=== PATIENT | female | born 1950 | race Caucasian/White ===

== ENCOUNTER 2020-12-02 08:39 | Day surgery (SDC) | payer MEDICARE, BC ==
[~2020-12-02 08:39] MED LIST: Albuterol/Ipratropium 3.0-0.5 MG/3 ML Neb Soln NEB ONE; Lactated Ringers 1,000 ML IV SCH; Sodium Chloride 0.9% 10 ML Syringe FLUSH PRN
[2020-12-02] MEDS ORDERED: Propofol 200 MG/20 ML SDV IV ONE (08:40)
[2020-12-02] MEDS ORDERED: fentaNYL 100 MCG/2 ML SDV IV ONE (08:40)
[2020-12-02] MEDS ORDERED: Lidocaine 2% 5 ML SDV INJECT ONE (08:40)
[2020-12-02] MEDS ORDERED: Succinylcholine 200 MG/10 ML MDV IV ONE (08:40)
[2020-12-02] MEDS ORDERED: Midazolam 1 MG/ML 2 ML SDV IV ONE (08:40)
[2020-12-02] MEDS ORDERED: Albuterol/Ipratropium 3.0-0.5 MG/3 ML Neb Soln NEB ONE ×2 (09:00→10:00)
[2020-12-02] MEDS ORDERED: Lactated Ringers 1,000 ML IV SCH (09:00)
[2020-12-02] MEDS ORDERED: acetaZOLAMIDE 500 MG Cap.ER PO ONE ×2 (09:00→11:00)
[2020-12-02] MEDS ORDERED: Sodium Chloride 0.9% 10 ML Syringe FLUSH PRN (09:00)
--- NOTE | 2020-12-02 12:54 | OR ---
DATE OF OPERATION: 12/02/2020 SURGEON: Serina Sotomayor MD PREOPERATIVE DIAGNOSIS: Visually significant cataract, right eye. POSTOPERATIVE DIAGNOSIS: Visually significant cataract, right eye. PROCEDURES PERFORMED: Complex phacoemulsification with intraocular lens placement, right eye; CPT 92253. ASSISTANTS: None. ANESTHESIA: LMA general anesthesia. COMPLICATIONS: None. BLOOD LOSS: None. IMPLANTS: A pre-loaded DCB00 25.0 diopter lens implanted. CDE: 17.55. DESCRIPTION OF PROCEDURE: After risks and benefits were reviewed with the patient, consent was obtained in the preoperative area, and the operative eye was marked with a surgical pen. In the preoperative area, a pledget was used to dilate the pupil consisting of a mixture of phenylephrine 10%, cyclopentolate 2%, moxifloxacin 0.5%, and bupivacaine 0.75%. The patient was taken to the operating room, where a time-out was performed, and the patient was placed under LMA monitored anesthesia care due to the patient's claustrophobia, breathing, and medical issues. Topical tetracaine was used for anesthesia. The operative eye was prepped and draped for ophthalmic surgery, and the microscope was brought into position and focused. A paracentesis incision was made, followed by injection of preservative-free 1% lidocaine into the anterior chamber, followed by injection of Viscoat into the anterior chamber. 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 A microkeratome blade was used to make a corneal limbal incision temporally. A cystotome was used to make the beginning of the capsulorrhexis, which was carried around 360 degrees in a curvilinear fashion using Utrata forceps. A Danielson cannula with BSS was used to hydrodissect and hydrodelineate the nucleus. The nucleus was removed in a divide and conquer manner using phacoemulsification. Irrigation and aspiration were used to remove the remaining cortical material. Provisc was used to inflate the capsular bag, and a pre-loaded DCB00 25.0 diopter lens, serial number [id number] was injected into the capsular bag. A Sinskey hook was used to position and center the lens. The Malyugin ring was then removed from the anterior chamber and discarded. Next, irrigation and aspiration was used to remove any remaining viscoelastic and cortical material from the anterior chamber. BSS on a cannula was used to inflate the anterior chamber and hydrate the wound. The wound was checked and found to be watertight. 1 mg of Moxifloxacin was injected into the anterior chamber. Drapes were removed and the eye was cleaned. A drop of brimonidine 0.2% and a drop of TobraDex was placed. The eye was shielded, and the patient was taken to the recovery room in stable condition. /[id number] VIRIDIANA/GLENYS
== END 2020-12-02 12:30 | disposition home or self-care (01) ==
LOC: FB.SDS 08:39
PROVIDERS: ATTEND Ophthalmology
DX: E11.36 Type 2 diabetes mellitus with diabetic cataract (principal); H25.13 Age-related nuclear cataract, bilateral; H04.123 Dry eye syndrome of bilateral lacrimal glands; H40.013 Open angle with borderline findings, low risk, bilateral; H50.111 Monocular exotropia, right eye; H53.021 Refractive amblyopia, right eye; H52.223 Regular astigmatism, bilateral; Z79.899 Other long term (current) drug therapy; Z79.82 Long term (current) use of aspirin; Z88.0 Allergy status to penicillin; Z88.8 Allergy status to other drugs, medicaments and biological substances; Z87.891 Personal history of nicotine dependence
CPT/HCPCS: 00142; 66982; A9270; J0330; J2250; J2704; J3010; J7120; V2632; J7620-GY

== ENCOUNTER 2020-12-30 10:43 | Day surgery (SDC) | payer MEDICARE, BC ==
[2020-12-30] MEDS ORDERED: fentaNYL 100 MCG/2 ML SDV IV ONE (10:44)
[2020-12-30] MEDS ORDERED: ePHEDrine 50 MG/ML SDV IV ONE (10:44)
[2020-12-30] MEDS ORDERED: Dexamethasone 4 MG/ML 5 ML MDV IVPUSH ONE (10:44)
[2020-12-30] MEDS ORDERED: Rocuronium 100 MG/10 ML MDV IV ONE (10:44)
[2020-12-30] MEDS ORDERED: Midazolam 1 MG/ML 2 ML SDV IV ONE (10:44)
[2020-12-30] MEDS ORDERED: Ondansetron 4 MG/2 ML SDV IVPUSH ONE (10:44)
[2020-12-30] MEDS ORDERED: Propofol 200 MG/20 ML SDV IV ONE (10:44)
[2020-12-30] MEDS ORDERED: Succinylcholine 200 MG/10 ML MDV IV ONE (10:44)
[2020-12-30] MEDS ORDERED: Lidocaine 2% 5 ML SDV INJECT ONE (10:44)
[2020-12-30] MEDS ORDERED: Sugammadex Sodium 200 MG/2 ML VIAL IV ONE (10:44)
[2020-12-30] MEDS ORDERED: Sodium Chloride 0.9% 10 ML Syringe FLUSH PRN (11:00)
[2020-12-30] MEDS ORDERED: Lactated Ringers 1,000 ML IV SCH (11:00)
[2020-12-30] MEDS ORDERED: Albuterol/Ipratropium 3.0-0.5 MG/3 ML Neb Soln NEB ONE ×2 (11:30→13:15)
[2020-12-30] MEDS ORDERED: acetaZOLAMIDE 500 MG Cap.ER PO ONE (13:00)
[2020-12-30] MEDS ORDERED: Albuterol/Ipratropium 3.0-0.5 MG/3 ML Neb Soln ONE (13:19)
--- NOTE | 2020-12-30 14:15 | OR ---
DATE OF OPERATION: 12/30/2020 SURGEON: Serina Sotomayor MD PREOPERATIVE DIAGNOSIS: Visually significant cataract, left eye. POSTOPERATIVE DIAGNOSIS: Visually significant cataract, left eye. PROCEDURES PERFORMED: Phacoemulsification with intraocular lens placement, left eye. ASSISTANTS: None. ANESTHESIA: General intubation. COMPLICATIONS: None. BLOOD LOSS: None. IMPLANTS: Pre-loaded DCB00 24.5 diopter lens implanted. CDE: 9.32. DESCRIPTION OF PROCEDURE: After risks and benefits were reviewed with the patient, consent was obtained in the preoperative area, and the operative eye was marked with a surgical pen. In the preoperative area, a pledget was used to dilate the pupil consisting of a mixture of phenylephrine 10%, cyclopentolate 2%, moxifloxacin 0.5%, and bupivacaine 0.75%. The patient was taken to the operating room, where a time-out was performed, and the patient was placed under general anesthesia due to multiple medical problems and severe claustrophobia. Topical tetracaine was used for anesthesia. The operative eye was prepped and draped for ophthalmic surgery, and the microscope was brought into position and focused. A paracentesis incision was made, followed by injection of preservative-free 1% lidocaine into the anterior chamber, followed by injection of Viscoat into the anterior chamber. A microkeratome blade was used to make a corneal limbal incision temporally. A cystotome was used to make the beginning of the capsulorrhexis, which was carried around 360 degrees in a curvilinear fashion using Utrata forceps. A Danielson cannula with BSS was used to hydrodissect and hydrodelineate the nucleus. The nucleus was removed in a divide and conquer manner using phacoemulsification. Irrigation and aspiration were used to remove the remaining cortical material. Provisc was used to inflate the capsular bag, and a pre-loaded DCB00 24.5 diopter lens, serial number [id number] was injected into the capsular bag. A Sinskey hook was used to position and center the lens. Next, irrigation and aspiration was used to remove any remaining viscoelastic and cortical material from the anterior chamber. BSS on a cannula was used to inflate the anterior chamber and hydrate the wound. The wound was checked and found to be watertight. 1 mg of Moxifloxacin was injected into the anterior chamber. Drapes were removed and the eye was cleaned. A drop of brimonidine 0.2% and a drop of TobraDex was placed. The eye was shielded, and the patient was taken to the recovery room in stable condition and awoken from anesthesia. /[id number] VIRIDIANA/GLENYS
== END 2020-12-30 14:35 | disposition home or self-care (01) ==
LOC: FB.SDS 10:43
PROVIDERS: ATTEND Ophthalmology
DX: E11.36 Type 2 diabetes mellitus with diabetic cataract (principal); H25.13 Age-related nuclear cataract, bilateral; H04.123 Dry eye syndrome of bilateral lacrimal glands; H40.013 Open angle with borderline findings, low risk, bilateral; H50.111 Monocular exotropia, right eye; H53.021 Refractive amblyopia, right eye; J44.9 Chronic obstructive pulmonary disease, unspecified; H52.223 Regular astigmatism, bilateral; I10 Essential (primary) hypertension; I48.91 Unspecified atrial fibrillation; I11.0 Hypertensive heart disease with heart failure; R09.01 Asphyxia; G47.30 Sleep apnea, unspecified; E78.5 Hyperlipidemia, unspecified; Z79.899 Other long term (current) drug therapy; Z88.0 Allergy status to penicillin; Z88.8 Allergy status to other drugs, medicaments and biological substances; Z87.891 Personal history of nicotine dependence
CPT/HCPCS: 00142-QZ; 94640; A9270-GY; J0330; J1100; J2250; J2405; J2704; J3010; J3490; J7120; J7620-GY; V2632

== ENCOUNTER → 2022-03-06 00:35 | Inpatient (IN) | payer MEDICARE, BC ==
[2022-02-24] MEDS: Insulin Lispro 100 Unit/ML 3 ML KwikPen SUBCUT SCH (17:45)
[2022-02-24] MEDS: Polyethylene Glycol 3350 Powder 17 GM Packet PO SCH (20:54)
[2022-02-24] MEDS: Gabapentin 300 MG Cap PO SCH (20:58)
[2022-02-24] MEDS: traZODone 50 MG Tab PO SCH (20:58)
[2022-02-24] MEDS: Oxybutynin 5 MG Tab.ER PO SCH (20:58)
[2022-02-24] MEDS: Apixaban 5 MG Tab PO SCH (20:58)
[2022-02-24] MEDS: Melatonin 3 MG Tab PO SCH (20:58)
[2022-02-24] MEDS: atorvaSTATin 40 MG Tab PO SCH (20:58)
[2022-02-24] MEDS: Aspirin 81 MG Tab.EC PO SCH (20:58)
[2022-02-25] MEDS: Pantoprazole 40 MG Tab.CR PO SCH (06:23)
[2022-02-25] MEDS: Insulin Lispro 100 Unit/ML 3 ML KwikPen SUBCUT SCH ×3 (08:15→17:48)
[2022-02-25] MEDS: Bumetanide 2 MG Tab PO SCH (08:17)
[2022-02-25] MEDS: DULoxetine 60 MG Cap PO SCH (08:18)
[2022-02-25] MEDS: Multivitamins with Iron/Calcium/Folic Acid/Minerals Tab PO SCH (08:19)
[2022-02-25] MEDS: Apixaban 5 MG Tab PO SCH ×2 (08:19→20:12)
[2022-02-25] MEDS: Ascorbic Acid 500 MG Tab PO SCH (08:19)
[2022-02-25] MEDS: Magnesium Oxide 400 MG Tab PO SCH (08:20)
[2022-02-25] MEDS: TRELEGY ELLIPTA INH SCH (08:22)
[2022-02-25] MEDS: Isosorbide Mononitrate 30 MG Tab.ER PO SCH (08:23)
[2022-02-25] MEDS: Potassium Chloride 20 MEQ Tab.ER PO SCH (08:26)
[2022-02-25] MEDS: Polyethylene Glycol 3350 Powder 17 GM Packet PO SCH (08:28)
[2022-02-25] MEDS: Metoprolol Succinate 25 MG Tab.ER PO SCH (08:29)
[2022-02-25] MEDS: Gabapentin 300 MG Cap PO SCH ×2 (08:48→20:12)
[2022-02-25] MEDS: Insulin Glargine,Human Rec. Analog 100 Units/ML 3 ML Pen SUBCUT SCH (08:50)
[2022-02-25] MEDS: Calcium Carbonate 500 MG Tablet PO SCH ×2 (08:52→20:12)
[2022-02-25] MEDS: Oxybutynin 5 MG Tab.ER PO SCH (20:12)
[2022-02-25] MEDS: Melatonin 3 MG Tab PO SCH (20:12)
[2022-02-25] MEDS: traZODone 50 MG Tab PO SCH (20:12)
[2022-02-25] MEDS: atorvaSTATin 40 MG Tab PO SCH (20:13)
[2022-02-25] MEDS: Aspirin 81 MG Tab.EC PO SCH (20:13)
[2022-02-25] MEDS: Acetaminophen 325 MG Tab PO PRN (22:30)
[2022-02-26] MEDS: Pantoprazole 40 MG Tab.CR PO SCH (06:22)
[2022-02-26] MEDS: Potassium Chloride 20 MEQ Tab.ER PO SCH (08:21)
[2022-02-26] MEDS: Magnesium Oxide 400 MG Tab PO SCH (08:22)
[2022-02-26] MEDS: Bumetanide 2 MG Tab PO SCH (08:22)
[2022-02-26] MEDS: Gabapentin 300 MG Cap PO SCH ×2 (08:22→20:57)
[2022-02-26] MEDS: Apixaban 5 MG Tab PO SCH ×2 (08:22→20:57)
[2022-02-26] MEDS: DULoxetine 60 MG Cap PO SCH (08:22)
[2022-02-26] MEDS: Ascorbic Acid 500 MG Tab PO SCH (08:26)
[2022-02-26] MEDS: Multivitamins with Iron/Calcium/Folic Acid/Minerals Tab PO SCH (08:26)
[2022-02-26] MEDS: Isosorbide Mononitrate 30 MG Tab.ER PO SCH (08:27)
[2022-02-26] MEDS: Metoprolol Succinate 25 MG Tab.ER PO SCH (08:27)
[2022-02-26] MEDS: TRELEGY ELLIPTA INH SCH (08:28)
[2022-02-26] MEDS: Calcium Carbonate 500 MG Tablet PO SCH ×2 (08:28→20:57)
[2022-02-26] MEDS: Acetaminophen 325 MG Tab PO PRN ×4 (08:34→22:00)
[2022-02-26] MEDS: Insulin Lispro 100 Unit/ML 3 ML KwikPen SUBCUT SCH ×3 (08:36→18:06)
[2022-02-26] MEDS: Insulin Glargine,Human Rec. Analog 100 Units/ML 3 ML Pen SUBCUT SCH (08:37)
[2022-02-26] MEDS: oxyCODONE 5 MG Tab PO PRN (10:30)
[2022-02-26] MEDS: atorvaSTATin 40 MG Tab PO SCH (20:56)
[2022-02-26] MEDS: Melatonin 3 MG Tab PO SCH (20:57)
[2022-02-26] MEDS: traZODone 50 MG Tab PO SCH (20:57)
[2022-02-26] MEDS: Oxybutynin 5 MG Tab.ER PO SCH (20:57)
[2022-02-26] MEDS: Aspirin 81 MG Tab.EC PO SCH (20:57)
[2022-02-27] MEDS: Acetaminophen 325 MG Tab PO PRN ×2 (05:06→09:32)
[2022-02-27] MEDS: Pantoprazole 40 MG Tab.CR PO SCH (05:06)
[2022-02-27] MEDS: Bumetanide 2 MG Tab PO SCH (08:01)
[2022-02-27] MEDS: Apixaban 5 MG Tab PO SCH ×2 (08:01→21:23)
[2022-02-27] MEDS: DULoxetine 60 MG Cap PO SCH (08:01)
[2022-02-27] MEDS: Magnesium Oxide 400 MG Tab PO SCH (08:02)
[2022-02-27] MEDS: Potassium Chloride 20 MEQ Tab.ER PO SCH (08:02)
[2022-02-27] MEDS: Calcium Carbonate 500 MG Tablet PO SCH ×2 (08:04→21:22)
[2022-02-27] MEDS: Multivitamins with Iron/Calcium/Folic Acid/Minerals Tab PO SCH (08:05)
[2022-02-27] MEDS: Ascorbic Acid 500 MG Tab PO SCH (08:05)
[2022-02-27] MEDS: TRELEGY ELLIPTA INH SCH (08:06)
[2022-02-27] MEDS: Gabapentin 300 MG Cap PO SCH ×2 (08:10→21:22)
[2022-02-27] MEDS: Metoprolol Succinate 25 MG Tab.ER PO SCH (08:14)
[2022-02-27] MEDS: Isosorbide Mononitrate 30 MG Tab.ER PO SCH (08:14)
[2022-02-27] MEDS: Insulin Glargine,Human Rec. Analog 100 Units/ML 3 ML Pen SUBCUT SCH (08:15)
[2022-02-27] MEDS: Insulin Lispro 100 Unit/ML 3 ML KwikPen SUBCUT SCH ×3 (08:16→18:08)
[2022-02-27] MEDS: traZODone 50 MG Tab PO SCH (21:22)
[2022-02-27] MEDS: Melatonin 3 MG Tab PO SCH (21:23)
[2022-02-27] MEDS: Oxybutynin 5 MG Tab.ER PO SCH (21:23)
[2022-02-27] MEDS: atorvaSTATin 40 MG Tab PO SCH (21:24)
[2022-02-27] MEDS: Aspirin 81 MG Tab.EC PO SCH (21:24)
[2022-02-27] MEDS: oxyCODONE 5 MG Tab PO PRN (22:41)
[2022-02-28] MEDS: oxyCODONE 5 MG Tab PO PRN ×2 (03:32→20:41)
[2022-02-28] MEDS: Acetaminophen 325 MG Tab PO PRN ×2 (06:06→15:43)
[2022-02-28] MEDS: Pantoprazole 40 MG Tab.CR PO SCH (06:06)
[2022-02-28] MEDS: Apixaban 5 MG Tab PO SCH ×2 (08:07→20:41)
[2022-02-28] MEDS: Magnesium Oxide 400 MG Tab PO SCH (08:07)
[2022-02-28] MEDS: Calcium Carbonate 500 MG Tablet PO SCH ×2 (08:07→20:40)
[2022-02-28] MEDS: Ascorbic Acid 500 MG Tab PO SCH (08:07)
[2022-02-28] MEDS: Multivitamins with Iron/Calcium/Folic Acid/Minerals Tab PO SCH (08:08)
[2022-02-28] MEDS: DULoxetine 60 MG Cap PO SCH (08:09)
[2022-02-28] MEDS: Bumetanide 2 MG Tab PO SCH (08:10)
[2022-02-28] MEDS: Metoprolol Succinate 25 MG Tab.ER PO SCH (08:10)
[2022-02-28] MEDS: Potassium Chloride 20 MEQ Tab.ER PO SCH (08:10)
[2022-02-28] MEDS: Isosorbide Mononitrate 30 MG Tab.ER PO SCH (08:11)
[2022-02-28] MEDS: Insulin Lispro 100 Unit/ML 3 ML KwikPen SUBCUT SCH ×3 (08:13→18:13)
[2022-02-28] MEDS: TRELEGY ELLIPTA INH SCH (08:14)
[2022-02-28] MEDS: Insulin Glargine,Human Rec. Analog 100 Units/ML 3 ML Pen SUBCUT SCH (08:14)
[2022-02-28] MEDS: Gabapentin 300 MG Cap PO SCH ×2 (08:16→20:39)
[2022-02-28] MEDS: Melatonin 3 MG Tab PO SCH (20:39)
[2022-02-28] MEDS: traZODone 50 MG Tab PO SCH (20:40)
[2022-02-28] MEDS: atorvaSTATin 40 MG Tab PO SCH (20:40)
[2022-02-28] MEDS: Aspirin 81 MG Tab.EC PO SCH (20:40)
[2022-02-28] MEDS: Oxybutynin 5 MG Tab.ER PO SCH (20:40)
[2022-02-28] MEDS: Nystatin Crm 15 GM Tube TOP PRN (21:20)
[2022-03-01] MEDS: Acetaminophen 325 MG Tab PO PRN ×3 (04:52→20:10)
[2022-03-01] MEDS: Pantoprazole 40 MG Tab.CR PO SCH (05:00)
[2022-03-01] MEDS: Nystatin Crm 15 GM Tube TOP PRN (07:00)
[2022-03-01] MEDS: Insulin Lispro 100 Unit/ML 3 ML KwikPen SUBCUT SCH ×3 (07:51→18:07)
[2022-03-01] MEDS: Insulin Glargine,Human Rec. Analog 100 Units/ML 3 ML Pen SUBCUT SCH (08:09)
[2022-03-01] MEDS: Bumetanide 2 MG Tab PO SCH (08:09)
[2022-03-01] MEDS: Apixaban 5 MG Tab PO SCH ×2 (08:12→20:02)
[2022-03-01] MEDS: TRELEGY ELLIPTA INH SCH (08:12)
[2022-03-01] MEDS: DULoxetine 60 MG Cap PO SCH (08:12)
[2022-03-01] MEDS: Potassium Chloride 20 MEQ Tab.ER PO SCH (08:14)
[2022-03-01] MEDS: Calcium Carbonate 500 MG Tablet PO SCH ×2 (08:14→20:05)
[2022-03-01] MEDS: Magnesium Oxide 400 MG Tab PO SCH (08:14)
[2022-03-01] MEDS: Isosorbide Mononitrate 30 MG Tab.ER PO SCH (08:15)
[2022-03-01] MEDS: Multivitamins with Iron/Calcium/Folic Acid/Minerals Tab PO SCH (08:15)
[2022-03-01] MEDS: Metoprolol Succinate 25 MG Tab.ER PO SCH (08:15)
[2022-03-01] MEDS: Ascorbic Acid 500 MG Tab PO SCH (08:16)
[2022-03-01] MEDS: Iron Polysaccharides Complex 150 MG Cap PO SCH ×2 (09:25→20:09)
[2022-03-01] MEDS: oxyCODONE 5 MG Tab PO PRN ×2 (10:01→20:09)
[2022-03-01] MEDS: atorvaSTATin 40 MG Tab PO SCH (20:03)
[2022-03-01] MEDS: Aspirin 81 MG Tab.EC PO SCH (20:03)
[2022-03-01] MEDS: Melatonin 3 MG Tab PO SCH (20:04)
[2022-03-01] MEDS: Oxybutynin 5 MG Tab.ER PO SCH (20:05)
[2022-03-01] MEDS: traZODone 50 MG Tab PO SCH (20:06)
[2022-03-02] MEDS: Pantoprazole 40 MG Tab.CR PO SCH (05:14)
[2022-03-02] MEDS: Insulin Lispro 100 Unit/ML 3 ML KwikPen SUBCUT SCH ×3 (07:58→17:29)
[2022-03-02] MEDS: Insulin Glargine,Human Rec. Analog 100 Units/ML 3 ML Pen SUBCUT SCH (07:59)
[2022-03-02] MEDS: TRELEGY ELLIPTA INH SCH (08:02)
[2022-03-02] MEDS: Magnesium Oxide 400 MG Tab PO SCH (08:03)
[2022-03-02] MEDS: Ascorbic Acid 500 MG Tab PO SCH (08:04)
[2022-03-02] MEDS: Potassium Chloride 20 MEQ Tab.ER PO SCH (08:04)
[2022-03-02] MEDS: DULoxetine 60 MG Cap PO SCH (08:05)
[2022-03-02] MEDS: Iron Polysaccharides Complex 150 MG Cap PO SCH ×2 (08:05→21:09)
[2022-03-02] MEDS: Calcium Carbonate 500 MG Tablet PO SCH ×2 (08:05→21:08)
[2022-03-02] MEDS: Bumetanide 2 MG Tab PO SCH (08:06)
[2022-03-02] MEDS: Apixaban 5 MG Tab PO SCH ×2 (08:07→21:06)
[2022-03-02] MEDS: Multivitamins with Iron/Calcium/Folic Acid/Minerals Tab PO SCH (08:07)
[2022-03-02] MEDS: Metoprolol Succinate 25 MG Tab.ER PO SCH (08:09)
[2022-03-02] MEDS: Isosorbide Mononitrate 30 MG Tab.ER PO SCH (08:10)
[2022-03-02] MEDS: oxyCODONE 5 MG Tab PO PRN ×2 (11:40→22:15)
[2022-03-02] MEDS: Acetaminophen 325 MG Tab PO PRN ×2 (11:41→22:14)
[2022-03-02] MEDS: Aspirin 81 MG Tab.EC PO SCH (21:07)
[2022-03-02] MEDS: atorvaSTATin 40 MG Tab PO SCH (21:08)
[2022-03-02] MEDS: Melatonin 3 MG Tab PO SCH (21:09)
[2022-03-02] MEDS: Oxybutynin 5 MG Tab.ER PO SCH (21:10)
[2022-03-02] MEDS: traZODone 50 MG Tab PO SCH (21:12)
[2022-03-03] MEDS: Pantoprazole 40 MG Tab.CR PO SCH (06:01)
[2022-03-03] MEDS: Insulin Lispro 100 Unit/ML 3 ML KwikPen SUBCUT SCH ×3 (07:54→17:53)
[2022-03-03] MEDS: DULoxetine 60 MG Cap PO SCH (08:03)
[2022-03-03] MEDS: Apixaban 5 MG Tab PO SCH ×2 (08:03→20:57)
[2022-03-03] MEDS: Iron Polysaccharides Complex 150 MG Cap PO SCH ×2 (08:03→20:58)
[2022-03-03] MEDS: Bumetanide 2 MG Tab PO SCH (08:03)
[2022-03-03] MEDS: TRELEGY ELLIPTA INH SCH (08:04)
[2022-03-03] MEDS: Isosorbide Mononitrate 30 MG Tab.ER PO SCH (08:04)
[2022-03-03] MEDS: Potassium Chloride 20 MEQ Tab.ER PO SCH (08:05)
[2022-03-03] MEDS: Insulin Glargine,Human Rec. Analog 100 Units/ML 3 ML Pen SUBCUT SCH (08:05)
[2022-03-03] MEDS: Multivitamins with Iron/Calcium/Folic Acid/Minerals Tab PO SCH (08:06)
[2022-03-03] MEDS: Magnesium Oxide 400 MG Tab PO SCH (08:06)
[2022-03-03] MEDS: Calcium Carbonate 500 MG Tablet PO SCH ×2 (08:06→20:59)
[2022-03-03] MEDS: Metoprolol Succinate 25 MG Tab.ER PO SCH (08:06)
[2022-03-03] MEDS: Ascorbic Acid 500 MG Tab PO SCH (08:07)
[2022-03-03] MEDS: oxyCODONE 5 MG Tab PO PRN (20:57)
[2022-03-03] MEDS: Oxybutynin 5 MG Tab.ER PO SCH (20:58)
[2022-03-03] MEDS: Melatonin 3 MG Tab PO SCH (20:58)
[2022-03-03] MEDS: atorvaSTATin 40 MG Tab PO SCH (20:58)
[2022-03-03] MEDS: Aspirin 81 MG Tab.EC PO SCH (20:58)
[2022-03-03] MEDS: traZODone 50 MG Tab PO SCH (20:59)
[2022-03-03] MEDS: Acetaminophen 325 MG Tab PO PRN (21:01)
[2022-03-04] MEDS: Pantoprazole 40 MG Tab.CR PO SCH (06:22)
[2022-03-04] MEDS: Insulin Lispro 100 Unit/ML 3 ML KwikPen SUBCUT SCH ×3 (08:19→18:03)
[2022-03-04] MEDS: Ascorbic Acid 500 MG Tab PO SCH (08:20)
[2022-03-04] MEDS: Metoprolol Succinate 25 MG Tab.ER PO SCH (08:23)
[2022-03-04] MEDS: Multivitamins with Iron/Calcium/Folic Acid/Minerals Tab PO SCH (08:24)
[2022-03-04] MEDS: TRELEGY ELLIPTA INH SCH (08:24)
[2022-03-04] MEDS: Apixaban 5 MG Tab PO SCH ×2 (08:24→21:13)
[2022-03-04] MEDS: Iron Polysaccharides Complex 150 MG Cap PO SCH ×2 (08:24→21:14)
[2022-03-04] MEDS: Potassium Chloride 20 MEQ Tab.ER PO SCH (08:25)
[2022-03-04] MEDS: Isosorbide Mononitrate 30 MG Tab.ER PO SCH (08:25)
[2022-03-04] MEDS: Bumetanide 2 MG Tab PO SCH (08:25)
[2022-03-04] MEDS: DULoxetine 60 MG Cap PO SCH (08:25)
[2022-03-04] MEDS: Calcium Carbonate 500 MG Tablet PO SCH ×2 (08:26→21:13)
[2022-03-04] MEDS: Magnesium Oxide 400 MG Tab PO SCH (08:26)
[2022-03-04] MEDS: Insulin Glargine,Human Rec. Analog 100 Units/ML 3 ML Pen SUBCUT SCH (08:28)
[2022-03-04] MEDS: guaiFENesin 600 MG Tab.ER PO PRN ×2 (15:23→21:11)
[2022-03-04] MEDS: Acetaminophen 325 MG Tab PO PRN (21:11)
[2022-03-04] MEDS: Melatonin 3 MG Tab PO SCH (21:12)
[2022-03-04] MEDS: oxyCODONE 5 MG Tab PO PRN (21:12)
[2022-03-04] MEDS: Oxybutynin 5 MG Tab.ER PO SCH (21:14)
[2022-03-04] MEDS: traZODone 50 MG Tab PO SCH (21:14)
[2022-03-04] MEDS: atorvaSTATin 40 MG Tab PO SCH (21:15)
[2022-03-04] MEDS: Aspirin 81 MG Tab.EC PO SCH (21:15)
[2022-03-05] MEDS: Pantoprazole 40 MG Tab.CR PO SCH (06:29)
[2022-03-05] MEDS: Bumetanide 2 MG Tab PO SCH (08:17)
[2022-03-05] MEDS: Apixaban 5 MG Tab PO SCH ×2 (08:18→20:58)
[2022-03-05] MEDS: DULoxetine 60 MG Cap PO SCH (08:18)
[2022-03-05] MEDS: TRELEGY ELLIPTA INH SCH (08:19)
[2022-03-05] MEDS: Iron Polysaccharides Complex 150 MG Cap PO SCH ×2 (08:19→20:59)
[2022-03-05] MEDS: Isosorbide Mononitrate 30 MG Tab.ER PO SCH (08:20)
[2022-03-05] MEDS: Magnesium Oxide 400 MG Tab PO SCH (08:21)
[2022-03-05] MEDS: Potassium Chloride 20 MEQ Tab.ER PO SCH (08:21)
[2022-03-05] MEDS: Calcium Carbonate 500 MG Tablet PO SCH ×2 (08:21→20:52)
[2022-03-05] MEDS: Multivitamins with Iron/Calcium/Folic Acid/Minerals Tab PO SCH (08:22)
[2022-03-05] MEDS: Ascorbic Acid 500 MG Tab PO SCH (08:23)
[2022-03-05] MEDS: Metoprolol Succinate 25 MG Tab.ER PO SCH (08:23)
[2022-03-05] MEDS: Insulin Lispro 100 Unit/ML 3 ML KwikPen SUBCUT SCH ×3 (08:28→17:59)
[2022-03-05] MEDS: Insulin Glargine,Human Rec. Analog 100 Units/ML 3 ML Pen SUBCUT SCH (08:34)
[2022-03-05] MEDS: guaiFENesin 600 MG Tab.ER PO PRN (08:36)
[2022-03-05] MEDS: oxyCODONE 5 MG Tab PO PRN (20:48)
[2022-03-05] MEDS: traZODone 50 MG Tab PO SCH (20:50)
[2022-03-05] MEDS: Melatonin 3 MG Tab PO SCH (20:52)
[2022-03-05] MEDS: Aspirin 81 MG Tab.EC PO SCH (20:55)
[2022-03-05] MEDS: atorvaSTATin 40 MG Tab PO SCH (20:55)
[2022-03-05] MEDS: Oxybutynin 5 MG Tab.ER PO SCH (20:58)
[~2022-03-06 00:35] MED LIST changes: +50% Dextrose in Water 50 ML Syringe IVPUSH PRN; +Acetaminophen 325 MG Tab PO SCH; +Albuterol 0.083% 2.5 MG/3 ML Neb Soln INH PRN; +Albuterol 8 GM Inhaler INH PRN; -Albuterol/Ipratropium 3.0-0.5 MG/3 ML Neb Soln NEB ONE; +Bisacodyl 10 MG Supp RECTAL PRN; +CALCIUM CARBONATE PO SCH; +Calcium Carbonate 500 MG Tab.Chew PO ONE; +Cholecalciferol (Vitamin D3) 25 MCG Tab PO SCH; +Estrogens,Conjugated Vaginal Crm 30 GM Tube VAG SCH; +Glucagon,Human Recombinant 1 MG Vial IM PRN; +Insulin Glargine,Human Rec. Analog 100 Units/ML 3 ML Pen SUBCUT ONE; +Insulin Lispro 100 Unit/ML 3 ML KwikPen SUBCUT ONE; -Lactated Ringers 1,000 ML IV SCH; +Losartan 25 MG Tab PO SCH; +Magnesium Citrate Solution 296 ML Bottle PO PRN; +Magnesium Hydroxide 400 MG/5 ML Susp 30 ML Cup PO PRN; +Nitroglycerin 0.4 MG Tab.SL SL PRN; +Non-Formulary Medication 1 Each (Insulin Aspart [Novolog Flexpen] 100 UNIT/ML Insuln.Pen) SQ SCH; +Non-Formulary Medication 1 Each (Melatonin [Melatonin] 5 MG Tablet) PO SCH; +Non-Formulary Medication 1 Each (Semaglutide [Ozempic] 2 MG/0.75 ML Pen.Injctr) SQ SCH; +Ondansetron 4 MG Tab.DIS PO PRN; -Sodium Chloride 0.9% 10 ML Syringe FLUSH PRN; +VITAMIN D3 PO SCH; +[UNRECOGNIZED DRUG - OTHER] PO SCH; +oxyCODONE 5 MG Tab PO PRN
[2022-03-06] MEDS: Pantoprazole 40 MG Tab.CR PO SCH (05:54)
[2022-03-06] MEDS: Insulin Lispro 100 Unit/ML 3 ML KwikPen SUBCUT SCH ×2 (08:23→11:00)
[2022-03-06] MEDS: Magnesium Oxide 400 MG Tab PO SCH (08:25)
[2022-03-06] MEDS: Ascorbic Acid 500 MG Tab PO SCH (08:25)
[2022-03-06] MEDS: Calcium Carbonate 500 MG Tablet PO SCH (08:26)
[2022-03-06] MEDS: Potassium Chloride 20 MEQ Tab.ER PO SCH (08:26)
[2022-03-06] MEDS: TRELEGY ELLIPTA INH SCH (08:27)
[2022-03-06] MEDS: Apixaban 5 MG Tab PO SCH (08:27)
[2022-03-06] MEDS: DULoxetine 60 MG Cap PO SCH (08:28)
[2022-03-06] MEDS: Iron Polysaccharides Complex 150 MG Cap PO SCH (08:28)
[2022-03-06] MEDS: Isosorbide Mononitrate 30 MG Tab.ER PO SCH (08:30)
[2022-03-06] MEDS: Metoprolol Succinate 25 MG Tab.ER PO SCH (08:30)
[2022-03-06] MEDS: Bumetanide 2 MG Tab PO SCH (08:31)
[2022-03-06] MEDS: Multivitamins with Iron/Calcium/Folic Acid/Minerals Tab PO SCH (08:32)
== END | disposition home health service (06) | DRG 560 ==
LOC: UNDOADMIN 02-24 15:24 → FB.MS 02-24 15:24 → UNDOADMIN 02-24 11:48 → FB.MS 02-24 15:24
PROVIDERS: ADMIT Family Medicine; ATTEND Family Medicine
DX: Z47.1 Aftercare following joint replacement surgery (principal); I50.22 Chronic systolic (congestive) heart failure; R53.1 Weakness; Z96.641 Presence of right artificial hip joint; I48.0 Paroxysmal atrial fibrillation; E78.2 Mixed hyperlipidemia; E66.01 Morbid (severe) obesity due to excess calories; I25.10 Atherosclerotic heart disease of native coronary artery without angina pectoris; K21.9 Gastro-esophageal reflux disease without esophagitis; J41.0 Simple chronic bronchitis; E78.00 Pure hypercholesterolemia, unspecified; H54.7 Unspecified visual loss; D64.89 Other specified anemias; N32.81 Overactive bladder; I11.0 Hypertensive heart disease with heart failure; E11.9 Type 2 diabetes mellitus without complications; Z88.0 Allergy status to penicillin; Z88.8 Allergy status to other drugs, medicaments and biological substances; Z79.899 Other long term (current) drug therapy; Z79.4 Long term (current) use of insulin; I25.2 Old myocardial infarction; Z86.73 Personal history of transient ischemic attack (TIA), and cerebral infarction without residual deficits; Z95.0 Presence of cardiac pacemaker
CPT/HCPCS: 36415; 85025; 97110-GO; 97110-GP; 97116-GP; 97161-GP; 97165-GO; 97530-GO; 97530-GP; 97535-GO; 99305; 99309; 99315; A9270-GY; J1815; J1815-GY; Q0162

== ENCOUNTER 2022-05-05 12:15 | Observation (INO) | payer MEDICARE, BC ==
[2022-05-05] MEDS ORDERED: Ondansetron 4 MG/2 ML SDV IV PRN (12:30)
[2022-05-05] MEDS ORDERED: Furosemide 20 MG/2 ML VIAL IVPUSH ONE (14:47)
[2022-05-05] MEDS: Sodium Chloride 0.9% 250 ML IV SCH ×2 (15:02→18:43)
[2022-05-05] MEDS ORDERED: Acetaminophen 325 MG Tab PO PRN (16:14)
[2022-05-05] MEDS ORDERED: 50% Dextrose in Water 50 ML Syringe IVPUSH PRN (16:23)
[2022-05-05] MEDS ORDERED: Glucagon,Human Recombinant 1 MG Vial IM PRN (16:23)
[2022-05-05] MEDS ORDERED: Insulin Lispro 100 Unit/ML 3 ML KwikPen SUBCUT SCH (18:00)
[2022-05-05] MEDS: RANOLAZINE 500 MG PO SCH (21:21)
[2022-05-05] MEDS: Gabapentin 300 MG Cap *PTOM PO SCH (21:21)
[2022-05-05] MEDS: Allopurinol 300 MG Tab *PTOM PO SCH (21:21)
[2022-05-05] MEDS: OXYBUTYNIN CHLORIDE 10 MG PO SCH (21:22)
[2022-05-05] MEDS: atorvaSTATin 40 MG Tab *PTOM PO SCH (21:22)
[2022-05-05] MEDS ORDERED: Insulin Lispro 100 Unit/ML 3 ML KwikPen SUBCUT ONE ×2 (22:55→23:16)
[2022-05-05] MEDS: traZODone 50 MG Tab *PTOM PO PRN (23:13)
[2022-05-06 06:31] LABS: ESTIMATED GFR 40 mL/min (>60)
[2022-05-06] MEDS: Insulin Lispro 100 Unit/ML 3 ML KwikPen SUBCUT SCH ×4 (07:40→21:03)
[2022-05-06] MEDS: cefTRIAXone 1 GM Vial IVPUSH SCH ×2 (09:19→10:01)
[2022-05-06] MEDS: DULoxetine 60 MG Cap *PTOM PO SCH (09:19)
[2022-05-06] MEDS: Montelukast 10 MG Tab *PTOM PO SCH (09:21)
[2022-05-06] MEDS: Potassium Chloride 20 MEQ Tab.ER *PTOM PO SCH (09:21)
[2022-05-06] MEDS: Pantoprazole 40 MG Tab.CR *PTOM PO SCH (09:21)
[2022-05-06] MEDS: RANOLAZINE 500 MG PO SCH ×2 (09:21→20:44)
[2022-05-06] MEDS: Magnesium Oxide 400 MG Tab PO SCH ×2 (09:22→20:44)
[2022-05-06] MEDS ORDERED: TRESIBA 100 UNIT/ML SUBCUT SCH (10:00)
[2022-05-06] MEDS: ASHWAGANDHA PO SCH (10:34)
[2022-05-06] MEDS: MAGNESIUM CITRATE PO SCH ×2 (10:34→21:01)
[2022-05-06] MEDS: VITAMIN C GUMMY PO SCH (10:35)
[2022-05-06] MEDS: [UNRECOGNIZED DRUG - OTHER] PO SCH (10:35)
[2022-05-06] MEDS: TRELEGY INH SCH (10:36)
[2022-05-06] MEDS: cefTRIAXone 1 GM Vial IM SCH (10:37)
[2022-05-06] MEDS: atorvaSTATin 40 MG Tab *PTOM PO SCH (20:44)
[2022-05-06] MEDS: Gabapentin 300 MG Cap *PTOM PO SCH ×2 (20:44→20:50)
[2022-05-06] MEDS: Allopurinol 300 MG Tab *PTOM PO SCH ×2 (20:44→21:00)
[2022-05-06] MEDS: traZODone 50 MG Tab *PTOM PO PRN (20:55)
[2022-05-06] MEDS: OXYBUTYNIN CHLORIDE 10 MG PO SCH (20:56)
[2022-05-06] MEDS ORDERED: GUMMY PO SCH (21:00)
[2022-05-06] MEDS ORDERED: MELATONIN 10 MG PO SCH (21:00)
[2022-05-06] MEDS ORDERED: TIZANIDINE 2 MG PO SCH (21:00)
[2022-05-06] MEDS ORDERED: Aspirin 81 MG Tab.EC *PTOM PO SCH (21:00)
[2022-05-07 06:38] LABS: ESTIMATED GFR 60 mL/min (>60)
[2022-05-07] MEDS: Insulin Lispro 100 Unit/ML 3 ML KwikPen SUBCUT SCH ×2 (08:34→12:10)
[2022-05-07] MEDS: Potassium Chloride 20 MEQ Tab.ER *PTOM PO SCH (08:35)
[2022-05-07] MEDS: [UNRECOGNIZED DRUG - OTHER] PO SCH (08:36)
[2022-05-07] MEDS: DULoxetine 60 MG Cap *PTOM PO SCH (08:36)
[2022-05-07] MEDS: ASHWAGANDHA PO SCH (08:36)
[2022-05-07] MEDS: MAGNESIUM CITRATE PO SCH (08:39)
[2022-05-07] MEDS: Magnesium Oxide 400 MG Tab PO SCH (08:44)
[2022-05-07] MEDS: RANOLAZINE 500 MG PO SCH (08:44)
[2022-05-07] MEDS: Pantoprazole 40 MG Tab.CR *PTOM PO SCH (08:44)
[2022-05-07] MEDS: TRELEGY INH SCH (08:46)
[2022-05-07] MEDS: Montelukast 10 MG Tab *PTOM PO SCH (08:46)
[2022-05-07] MEDS: VITAMIN C GUMMY PO SCH (08:49)
[2022-05-07] MEDS ORDERED: Metoprolol Succinate 25 MG Tab.ER PO SCH (09:00)
[2022-05-07] MEDS ORDERED: Isosorbide Mononitrate 30 MG Tab.ER *PTOM PO SCH (09:00)
[2022-05-07] MEDS ORDERED: Bumetanide 2 MG Tab PO SCH (09:00)
[2022-05-07] MEDS ORDERED: Losartan 25 MG Tab PO SCH (09:00)
[2022-05-07] MEDS ORDERED: TRESIBA 100 UNIT/ML SUBCUT SCH (10:00)
[2022-05-07] MEDS: cefTRIAXone 1 GM Vial IM SCH (10:00)
[2022-05-08] MEDS ORDERED: Cefdinir 300 MG Cap PO SCH (09:00)
== END 2022-05-07 13:12 | disposition home or self-care (01) ==
LOC: UNDOADMOB 12:15 → FB.MS 12:15
PROVIDERS: ADMIT Family Medicine; ATTEND Family Medicine
DX: D64.9 Anemia, unspecified (principal); I95.89 Other hypotension; E86.1 Hypovolemia; K92.1 Melena; R06.02 Shortness of breath; N39.0 Urinary tract infection, site not specified; B96.20 Unspecified Escherichia coli [E. coli] as the cause of diseases classified elsewhere; L98.9 Disorder of the skin and subcutaneous tissue, unspecified; I50.9 Heart failure, unspecified; J44.9 Chronic obstructive pulmonary disease, unspecified; I48.0 Paroxysmal atrial fibrillation; I25.10 Atherosclerotic heart disease of native coronary artery without angina pectoris; K21.9 Gastro-esophageal reflux disease without esophagitis; I10 Essential (primary) hypertension; E78.2 Mixed hyperlipidemia; E11.9 Type 2 diabetes mellitus without complications; E66.01 Morbid (severe) obesity due to excess calories; Z88.0 Allergy status to penicillin; Z88.8 Allergy status to other drugs, medicaments and biological substances; Z79.899 Other long term (current) drug therapy; Z79.4 Long term (current) use of insulin; Z95.818 Presence of other cardiac implants and grafts; Z87.19 Personal history of other diseases of the digestive system; Z95.0 Presence of cardiac pacemaker; Z86.73 Personal history of transient ischemic attack (TIA), and cerebral infarction without residual deficits; Z68.38 Body mass index [BMI] 38.0-38.9, adult
CPT/HCPCS: 36410; 36415; 36430; 71045; 80048; 81001; 82270; 85025; 86850; 86900; 86901; 86920; 86922; 87086; 87088; 87186; 96372; 96374; 96375; 99222; 99232; 99238; A9270-GY; G0378; G0379; J0696; J1815; J1940; J2405; J7050; P9016

== ENCOUNTER 2023-05-03 09:29 | Inpatient (IN) | payer MEDICARE, BC ==
[2023-05-03] MEDS ORDERED: Non-Formulary Medication 1 Each (Estrogens, Conjugated [Premarin Vaginal Crm] 30 GM Tube) VAG PRN (14:45)
[2023-05-03] MEDS ORDERED: Albuterol 6.7 GM Inhaler INH PRN (14:45)
[2023-05-03] MEDS ORDERED: traZODone 50 MG Tab PO PRN (14:45)
[2023-05-03] MEDS ORDERED: Nitroglycerin 0.4 MG Tab.SL SL PRN (14:45)
[2023-05-03] MEDS ORDERED: Nystatin Crm 15 GM Tube TOP PRN (14:45)
[2023-05-03] MEDS ORDERED: Ondansetron 4 MG Tab.DIS PO PRN (15:01)
[2023-05-03] MEDS ORDERED: Non-Formulary Medication 1 Each (Insulin Aspart [Novolog Flexpen] 100 UNIT/ML Insuln.Pen) SQ SCH (17:30)
[2023-05-03] MEDS: Insulin Lispro 100 Unit/ML 3 ML KwikPen SUBCUT SCH (18:00)
[2023-05-03] MEDS ORDERED: Insulin Lispro 100 Unit/ML 3 ML KwikPen SUBCUT ONE (20:00)
[2023-05-03] MEDS: Metoprolol Tartrate 50 MG Tab PO SCH (20:23)
[2023-05-03] MEDS: Allopurinol 300 MG Tab PO SCH (20:23)
[2023-05-03] MEDS: atorvaSTATin 40 MG Tab PO SCH (20:23)
[2023-05-03] MEDS: Calcium Carbonate 500 MG Tablet PO SCH (20:23)
[2023-05-03] MEDS: Aspirin 81 MG Tab.EC PO SCH (20:23)
[2023-05-03] MEDS: Melatonin 3 MG Tab PO SCH (23:12)
[2023-05-04] MEDS: Pantoprazole 40 MG Tab.CR PO SCH (06:30)
[2023-05-04] MEDS: Torsemide 20 MG Tab PO SCH (08:02)
[2023-05-04] MEDS: Multivitamin, Childrens Tab.Chew PO SCH (08:02)
[2023-05-04] MEDS: Saccharomyces Boulardii (Probiotic) 250 MG Cap PO SCH (08:03)
[2023-05-04] MEDS: DULoxetine 60 MG Cap PO SCH (08:03)
[2023-05-04] MEDS: Formoterol/Mometasone 100-5 MCG 8.8 GM Inhaler IH SCH (08:03)
[2023-05-04] MEDS: Empagliflozin 10 MG Tab PO SCH (08:04)
[2023-05-04] MEDS: Montelukast 10 MG Tab PO SCH (08:04)
[2023-05-04] MEDS: Tiotropium Bromide 4 GM Inhalation Spray (2.5mcg/1 dose; 10 doses) INH SCH (08:04)
[2023-05-04] MEDS: Potassium Chloride 20 MEQ Tab.ER PO SCH (08:04)
[2023-05-04] MEDS: Clopidogrel 75 MG Tab PO SCH (08:04)
[2023-05-04] MEDS: Isosorbide Mononitrate 30 MG Tab.ER PO SCH (08:07)
[2023-05-04] MEDS: Ascorbic Acid 500 MG Tab PO SCH (08:08)
[2023-05-04] MEDS ORDERED: Insulin Glargine,Human Rec. Analog 100 Units/ML 3 ML Pen SUBCUT ONE (08:18)
[2023-05-04] MEDS: Insulin Glargine,Human Rec. Analog 100 Units/ML 3 ML Pen SUBCUT SCH (08:19)
[2023-05-06 06:32] LABS: BASOPHILS ABSOLUTE AUTO 0.1 x10-3/uL (0.0-0.1); BASOPHILS PERCENT AUTO 1.1 % (0.2-1.5); EOSINOPHILS ABSOLUTE AUTO 0.2 x10-3/uL (0.0-0.8); HEMATOCRIT 35.4 % (34.2-48.2); HEMOGLOBIN 11.6 g/dL (11.4-15.5); LYMPHOCYTES ABSOLUTE AUTO 2.7 x10-3/uL (1.0-4.4); LYMPHOCYTES PERCENT AUTO 28.5 % (18.4-52.1); MEAN CORPUSCULAR HEMOGLOBIN 31.6 pg (23.9-33.9); MEAN CORPUSCULAR HGB CONC 32.7 g/dL (31.9-34.8); MEAN CORPUSCULAR VOLUME 96.4 fL (76.7-100.5); MEAN PLATELET VOLUME 8.5 fL (7.1-12.4); MONOCYTES ABSOLUTE AUTO 0.7 x10-3/uL (0.3-1.0); MONOCYTES PERCENT AUTO 7.8 % (4.4-15.7); NEUTROPHILS ABSOLUTE AUTO 5.8 x10-3/uL (1.5-6.3); NEUTROPHILS PERCENT AUTO 60.6 % (30.8-76.2); PLATELET COUNT,PLT 320 x10(3)uL (151-488); WHITE BLOOD CELL COUNT,WBC 9.5 x10-3/uL (3.0-10.3)
[2023-05-06 06:37] LABS: BLOOD UREA NITROGEN,BUN 60 mg/dL (7-18); BUN/CREATININE RATIO 31.6 (9-20); CALCIUM 9.5 mg/dL (8.6-10.2); CARBON DIOXIDE,CO2 31 mmol/L (21-32); CHLORIDE,CL 98 mmol/L (100-110); CREATININE 1.9 mg/dL (0.55-1.02); EST CRCL DRUG DOSING (CG) 20.86 mL/min; ESTIMATED GFR 28 mL/min (>60); GLUCOSE RANDOM 269 mg/dL (80-116); POTASSIUM,K 3.7 mmol/L (3.5-5.3); SODIUM,NA 138 mmol/L (135-145)
[2023-05-06 06:46] LABS: RED BLOOD CELL COUNT 3.67 x10(6)uL (3.60-5.20)
[2023-05-06] MEDS: Acetaminophen 325 MG Tab PO PRN (22:35)
== END 2023-05-12 17:20 | disposition home health service (06) | DRG 949 ==
LOC: FB.MS 13:56
PROVIDERS: ADMIT Family Medicine; ATTEND Internal Medicine
DX: Z48.812 Encounter for surgical aftercare following surgery on the circulatory system (principal); I21.4 Non-ST elevation (NSTEMI) myocardial infarction; I13.0 Hypertensive heart and chronic kidney disease with heart failure and stage 1 through stage 4 chronic kidney disease, or unspecified chronic kidney disease; I48.11 Longstanding persistent atrial fibrillation; I50.32 Chronic diastolic (congestive) heart failure; I25.10 Atherosclerotic heart disease of native coronary artery without angina pectoris; F32.A Depression, unspecified; E11.22 Type 2 diabetes mellitus with diabetic chronic kidney disease; J44.9 Chronic obstructive pulmonary disease, unspecified; N18.32 Chronic kidney disease, stage 3b; E66.01 Morbid (severe) obesity due to excess calories; Z96.641 Presence of right artificial hip joint; K21.9 Gastro-esophageal reflux disease without esophagitis; G47.33 Obstructive sleep apnea (adult) (pediatric); Z79.4 Long term (current) use of insulin; Z68.37 Body mass index [BMI] 37.0-37.9, adult; Z95.5 Presence of coronary angioplasty implant and graft; Z86.73 Personal history of transient ischemic attack (TIA), and cerebral infarction without residual deficits; Z88.0 Allergy status to penicillin; Z88.8 Allergy status to other drugs, medicaments and biological substances; Z98.42 Cataract extraction status, left eye; Z98.41 Cataract extraction status, right eye; Z86.718 Personal history of other venous thrombosis and embolism; Z79.01 Long term (current) use of anticoagulants; Z95.0 Presence of cardiac pacemaker; Z87.01 Personal history of pneumonia (recurrent); Z86.711 Personal history of pulmonary embolism; Z90.49 Acquired absence of other specified parts of digestive tract; Z90.710 Acquired absence of both cervix and uterus; Z86.16 Personal history of COVID-19; Z99.81 Dependence on supplemental oxygen
CPT/HCPCS: 36415; 80048; 83880; 85025; 97110-GO; 97112-GP; 97116-GP; 97161-GP; 97165-GO; 97530-GO; 97530-GP; 97535-GO; A9270-GY; J1815; J1815-GY

== ENCOUNTER 2023-06-30 12:13 | Inpatient (IN) | payer MEDICARE, BC ==
[2023-06-30] MEDS ORDERED: Estradiol 0.01% Vaginal Crm 42.5 GM Tube VAG PRN (16:28)
[2023-06-30] MEDS ORDERED: Ondansetron 4 MG Tab.DIS PO PRN (16:36)
[2023-06-30] MEDS ORDERED: Non-Formulary Medication 1 Each (Insulin Aspart [Novolog Flexpen] 100 UNIT/ML Insuln.Pen) SQ SCH (17:30)
[2023-06-30] MEDS ORDERED: Insulin Lispro 100 Unit/ML 3 ML KwikPen SUBCUT ONE (17:32)
[2023-06-30] MEDS: Insulin Lispro 100 Unit/ML 3 ML KwikPen SUBCUT SCH (17:39)
[2023-06-30] MEDS: Allopurinol 300 MG Tab PO SCH (20:27)
[2023-06-30] MEDS: Calcium Carbonate 500 MG Tablet PO SCH (20:27)
[2023-06-30] MEDS: Aspirin 81 MG Tab.EC PO SCH (20:28)
[2023-06-30] MEDS: atorvaSTATin 40 MG Tab PO SCH (20:28)
[2023-06-30] MEDS: Loratadine 10 MG Tab PO SCH (20:28)
[2023-06-30] MEDS: traZODone 50 MG Tab PO SCH (20:28)
[2023-06-30] MEDS: Melatonin 3 MG Tab PO SCH (20:28)
[2023-06-30] MEDS: Metoprolol Tartrate 50 MG Tab PO SCH (20:28)
[2023-06-30] MEDS: NYSTATIN TOP PRN (21:18)
[2023-07-01] MEDS: Pantoprazole 40 MG Tab.CR PO SCH (06:12)
[2023-07-01] MEDS: Nitroglycerin 0.4 MG Tab.SL SL PRN (07:51)
[2023-07-01 07:55] LABS: BASOPHILS ABSOLUTE AUTO 0.1 x10-3/uL (0.0-0.1); BASOPHILS PERCENT AUTO 0.9 % (0.2-1.5); EOSINOPHILS ABSOLUTE AUTO 0.2 x10-3/uL (0.0-0.8); EOSINOPHILS PERCENT AUTO 2.9 % (0.6-8.1); HEMATOCRIT 33.5 % (34.2-48.2); HEMOGLOBIN 10.6 g/dL (11.4-15.5); LYMPHOCYTES ABSOLUTE AUTO 1.7 x10-3/uL (1.0-4.4); LYMPHOCYTES PERCENT AUTO 20.1 % (18.4-52.1); MEAN CORPUSCULAR HEMOGLOBIN 31.8 pg (23.9-33.9); MEAN CORPUSCULAR HGB CONC 31.7 g/dL (31.9-34.8); MEAN CORPUSCULAR VOLUME 100.2 fL (76.7-100.5); MEAN PLATELET VOLUME 8.7 fL (7.1-12.4); MONOCYTES ABSOLUTE AUTO 0.7 x10-3/uL (0.3-1.0); MONOCYTES PERCENT AUTO 8.6 % (4.4-15.7); NEUTROPHILS ABSOLUTE AUTO 5.7 x10-3/uL (1.5-6.3); NEUTROPHILS PERCENT AUTO 67.5 % (30.8-76.2); PLATELET COUNT,PLT 265 x10(3)uL (151-488); RED BLOOD CELL COUNT 3.34 x10(6)uL (3.60-5.20); RED CELL DISTRIBUTION WIDTH 19.5 % (12.3-16.5); WHITE BLOOD CELL COUNT,WBC 8.5 x10-3/uL (3.0-10.3)
[2023-07-01 08:06] LABS: A/G RATIO 0.7; ALANINE AMINOTRANSFERASE,ALT 22 U/L (12-36); ALBUMIN 2.9 g/dL (3.2-4.6); ALKALINE PHOSPHATASE 173 IU/L (56-112); ASPARTATE AMNIOTRANSFERASE,AST 26 IU/L (5-25); BILIRUBIN TOTAL 1.2 mg/dL (0.1-1.3); BLOOD UREA NITROGEN,BUN 72 mg/dL (7-18); CALCIUM 8.8 mg/dL (8.6-10.2); CARBON DIOXIDE,CO2 33 mmol/L (21-32); CHLORIDE,CL 100 mmol/L (100-110); CREATININE 1.8 mg/dL (0.55-1.02); EST CRCL DRUG DOSING (CG) 22.02 mL/min; ESTIMATED GFR 29 mL/min (>60); GLUCOSE RANDOM 206 mg/dL (80-116); POTASSIUM,K 3.7 mmol/L (3.5-5.3); PROTEIN TOTAL,TP 7.2 g/dL (6.0-8.0); SODIUM,NA 141 mmol/L (135-145)
[2023-07-01] MEDS: Acetaminophen 325 MG Tab PO PRN (08:13)
[2023-07-01] MEDS: Empagliflozin 10 MG Tab PO SCH (08:43)
[2023-07-01] MEDS: Sennosides/Docusate Sodium 50-8.6 MG Tab PO SCH (08:43)
[2023-07-01] MEDS: DULoxetine 60 MG Cap PO SCH (08:43)
[2023-07-01] MEDS: Isosorbide Mononitrate 30 MG Tab.ER PO SCH (08:44)
[2023-07-01] MEDS: Clopidogrel 75 MG Tab PO SCH (08:44)
[2023-07-01] MEDS: Potassium Chloride 20 MEQ Tab.ER PO SCH (08:45)
[2023-07-01] MEDS: Saccharomyces Boulardii (Probiotic) 250 MG Cap PO SCH (08:45)
[2023-07-01] MEDS: Montelukast 10 MG Tab PO SCH (08:45)
[2023-07-01] MEDS: Ascorbic Acid 500 MG Tab PO SCH (08:46)
[2023-07-01] MEDS: Multivitamin, Childrens Tab.Chew PO SCH (08:47)
[2023-07-01] MEDS: VILANTER INH SCH (08:48)
[2023-07-01] MEDS: UMECLIDIN INH SCH (08:48)
[2023-07-01] MEDS: FLUTICASONE INH SCH (08:48)
[2023-07-01] MEDS ORDERED: Insulin Glargine,Human Rec. Analog 100 Units/ML 3 ML Pen SUBCUT ONE (08:55)
[2023-07-01] MEDS: Insulin Glargine,Human Rec. Analog 100 Units/ML 3 ML Pen SUBCUT SCH (08:56)
[2023-07-01] MEDS: Torsemide 20 MG Tab PO SCH (09:30)
[2023-07-01] MEDS: Spironolactone 25 MG Tab PO SCH (10:11)
[2023-07-01] MEDS: Enoxaparin 30 MG/0.3 ML Syringe SUBCUT SCH (10:11)
[2023-07-02 06:57] LABS: BASE EXCESS VENOUS,POC 6 mmol/L (-2 - 3+); PCO2 VENOUS,POC 38 mmHg (41-51)
[2023-07-02 06:59] LABS: BASOPHILS PERCENT AUTO 0.4 % (0.2-1.5); EOSINOPHILS ABSOLUTE AUTO 0.2 x10-3/uL (0.0-0.8); EOSINOPHILS PERCENT AUTO 2.3 % (0.6-8.1); HEMATOCRIT 34.3 % (34.2-48.2); HEMOGLOBIN 10.9 g/dL (11.4-15.5); LYMPHOCYTES PERCENT AUTO 21.6 % (18.4-52.1); MEAN CORPUSCULAR HGB CONC 31.9 g/dL (31.9-34.8); MEAN CORPUSCULAR VOLUME 100.2 fL (76.7-100.5); MONOCYTES ABSOLUTE AUTO 0.9 x10-3/uL (0.3-1.0); MONOCYTES PERCENT AUTO 10.2 % (4.4-15.7); NEUTROPHILS ABSOLUTE AUTO 5.9 x10-3/uL (1.5-6.3); NEUTROPHILS PERCENT AUTO 65.5 % (30.8-76.2); PLATELET COUNT,PLT 291 x10(3)uL (151-488); RED CELL DISTRIBUTION WIDTH 19.4 % (12.3-16.5); WHITE BLOOD CELL COUNT,WBC 9.1 x10-3/uL (3.0-10.3)
[2023-07-02 07:17] LABS: BLOOD UREA NITROGEN,BUN 68 mg/dL (7-18); BUN/CREATININE RATIO 37.8 (9-20); CALCIUM 9.2 mg/dL (8.6-10.2); CARBON DIOXIDE,CO2 31 mmol/L (21-32); CHLORIDE,CL 100 mmol/L (100-110); CREATININE 1.8 mg/dL (0.55-1.02); EST CRCL DRUG DOSING (CG) 22.02 mL/min; ESTIMATED GFR 29 mL/min (>60); GLUCOSE RANDOM 182 mg/dL (80-116); POTASSIUM,K 3.9 mmol/L (3.5-5.3); SODIUM,NA 140 mmol/L (135-145)
[2023-07-02 07:18] LABS: RED BLOOD CELL COUNT 3.42 x10(6)uL (3.60-5.20)
[2023-07-02] MEDS: WOMENS VITAFUSION PO SCH (09:01)
[2023-07-02] MEDS: Furosemide 40 MG/4 ML VIAL IVPUSH ONE (09:15)
[2023-07-02] MEDS: Sodium Chloride 0.9% 10 ML Syringe FLUSH PRN (09:15)
[2023-07-03 07:35] LABS: BLOOD UREA NITROGEN,BUN 54 mg/dL (7-18); CALCIUM 9.1 mg/dL (8.6-10.2); CARBON DIOXIDE,CO2 32 mmol/L (21-32); CHLORIDE,CL 102 mmol/L (100-110); CREATININE 1.5 mg/dL (0.55-1.02); EST CRCL DRUG DOSING (CG) 26.02 mL/min; ESTIMATED GFR 36 mL/min (>60); GLUCOSE RANDOM 130 mg/dL (80-116); POTASSIUM,K 3.6 mmol/L (3.5-5.3); SODIUM,NA 143 mmol/L (135-145)
[2023-07-03] MEDS ORDERED: Torsemide 20 MG Tab PO SCH (09:00)
[2023-07-03] MEDS: Furosemide 40 MG/4 ML VIAL IVPUSH SCH (10:32)
[2023-07-04 07:34] LABS: BLOOD UREA NITROGEN,BUN 53 mg/dL (7-18); BUN/CREATININE RATIO 33.1 (9-20); CALCIUM 9.1 mg/dL (8.6-10.2); CARBON DIOXIDE,CO2 32 mmol/L (21-32); CHLORIDE,CL 100 mmol/L (100-110); CREATININE 1.6 mg/dL (0.55-1.02); ESTIMATED GFR 34 mL/min (>60); GLUCOSE RANDOM 238 mg/dL (80-116); POTASSIUM,K 3.6 mmol/L (3.5-5.3); SODIUM,NA 140 mmol/L (135-145)
[2023-07-05] MEDS: Torsemide 20 MG Tab PO ONE (11:05)
[2023-07-05 11:46] LABS: BLOOD UREA NITROGEN,BUN 54 mg/dL (7-18); CALCIUM 8.9 mg/dL (8.6-10.2); CARBON DIOXIDE,CO2 31 mmol/L (21-32); CHLORIDE,CL 96 mmol/L (100-110); CREATININE 1.5 mg/dL (0.55-1.02); EST CRCL DRUG DOSING (CG) 26.02 mL/min; ESTIMATED GFR 36 mL/min (>60); GLUCOSE RANDOM 289 mg/dL (80-116); POTASSIUM,K 3.7 mmol/L (3.5-5.3); SODIUM,NA 136 mmol/L (135-145)
[2023-07-05] MEDS: Polyethylene Glycol 3350 Powder 17 GM Packet PO PRN (17:58)
[2023-07-06 07:32] LABS: BLOOD UREA NITROGEN,BUN 57 mg/dL (7-18); CARBON DIOXIDE,CO2 34 mmol/L (21-32); CHLORIDE,CL 98 mmol/L (100-110); CREATININE 1.5 mg/dL (0.55-1.02); EST CRCL DRUG DOSING (CG) 26.02 mL/min; ESTIMATED GFR 36 mL/min (>60); GLUCOSE RANDOM 109 mg/dL (80-116); POTASSIUM,K 3.9 mmol/L (3.5-5.3); SODIUM,NA 137 mmol/L (135-145)
[2023-07-06] MEDS: Furosemide 40 MG/4 ML VIAL IVPUSH ONE (10:42)
[2023-07-06] MEDS: Furosemide 40 MG/4 ML VIAL IVPUSH STA (17:04)
[2023-07-07 09:48] LABS: A/G RATIO 0.6; ALANINE AMINOTRANSFERASE,ALT 37 U/L (12-36); ALBUMIN 2.9 g/dL (3.2-4.6); ALKALINE PHOSPHATASE 227 IU/L (56-112); ASPARTATE AMNIOTRANSFERASE,AST 37 IU/L (5-25); BILIRUBIN TOTAL 0.9 mg/dL (0.1-1.3); BLOOD UREA NITROGEN,BUN 65 mg/dL (7-18); CARBON DIOXIDE,CO2 33 mmol/L (21-32); CHLORIDE,CL 96 mmol/L (100-110); CREATININE 1.6 mg/dL (0.55-1.02); ESTIMATED GFR 34 mL/min (>60); GLUCOSE RANDOM 297 mg/dL (80-116); POTASSIUM,K 4.3 mmol/L (3.5-5.3); PROTEIN TOTAL,TP 7.4 g/dL (6.0-8.0); SODIUM,NA 136 mmol/L (135-145)
[2023-07-07 10:19] LABS: BUN/CREATININE RATIO 40.6 (9-20)
[2023-07-07] MEDS ORDERED: Bumetanide 1 MG/4 ML MDV IVPUSH ONE (10:20)
[2023-07-07] MEDS: Metolazone 2.5 MG Tab PO ONE (10:39)
[2023-07-07] MEDS: Bumetanide 1 MG/4 ML MDV IVPUSH ONE (11:25)
[2023-07-07 13:08] LABS: BASE EXCESS VENOUS,POC 2 mmol/L (-2 - 3+); PCO2 VENOUS,POC 42 mmHg (41-51); PH VENOUS,POC 7.42 pH Units (7.32-7.43)
[2023-07-07 13:13] LABS: BASOPHILS ABSOLUTE AUTO 0.1 x10-3/uL (0.0-0.1); BASOPHILS PERCENT AUTO 0.8 % (0.2-1.5); EOSINOPHILS ABSOLUTE AUTO 0.2 x10-3/uL (0.0-0.8); EOSINOPHILS PERCENT AUTO 1.9 % (0.6-8.1); HEMOGLOBIN 10.7 g/dL (11.4-15.5); LYMPHOCYTES PERCENT AUTO 21.7 % (18.4-52.1); MEAN CORPUSCULAR HEMOGLOBIN 32.4 pg (23.9-33.9); MEAN CORPUSCULAR HGB CONC 32.4 g/dL (31.9-34.8); MEAN CORPUSCULAR VOLUME 100.2 fL (76.7-100.5); MEAN PLATELET VOLUME 9.1 fL (7.1-12.4); MONOCYTES ABSOLUTE AUTO 0.8 x10-3/uL (0.3-1.0); MONOCYTES PERCENT AUTO 8.6 % (4.4-15.7); NEUTROPHILS ABSOLUTE AUTO 6.3 x10-3/uL (1.5-6.3); PLATELET COUNT,PLT 328 x10(3)uL (151-488); RED CELL DISTRIBUTION WIDTH 19.8 % (12.3-16.5); WHITE BLOOD CELL COUNT,WBC 9.4 x10-3/uL (3.0-10.3)
[2023-07-08 07:09] LABS: A/G RATIO 0.6; ALANINE AMINOTRANSFERASE,ALT 30 U/L (12-36); ALBUMIN 2.7 g/dL (3.2-4.6); ALKALINE PHOSPHATASE 208 IU/L (56-112); ASPARTATE AMNIOTRANSFERASE,AST 35 IU/L (5-25); BILIRUBIN TOTAL 0.9 mg/dL (0.1-1.3); BLOOD UREA NITROGEN,BUN 65 mg/dL (7-18); CALCIUM 8.9 mg/dL (8.6-10.2); CARBON DIOXIDE,CO2 34 mmol/L (21-32); CHLORIDE,CL 98 mmol/L (100-110); CREATININE 1.5 mg/dL (0.55-1.02); EST CRCL DRUG DOSING (CG) 26.02 mL/min; ESTIMATED GFR 36 mL/min (>60); GLUCOSE RANDOM 131 mg/dL (80-116); POTASSIUM,K 3.5 mmol/L (3.5-5.3); PROTEIN TOTAL,TP 7.2 g/dL (6.0-8.0); SODIUM,NA 138 mmol/L (135-145)
[2023-07-08 07:38] LABS: BUN/CREATININE RATIO 43.3 (9-20)
[2023-07-08] MEDS: Bumetanide 1 MG/4 ML MDV IVPUSH SCH (11:09)
[2023-07-08] MEDS: Metolazone 2.5 MG Tab PO SCH (11:09)
[2023-07-08] MEDS: Albuterol 6.7 GM Inhaler INH PRN (20:40)
[2023-07-09 07:17] LABS: A/G RATIO 0.6; ALANINE AMINOTRANSFERASE,ALT 33 U/L (12-36); ALBUMIN 2.8 g/dL (3.2-4.6); ALKALINE PHOSPHATASE 208 IU/L (56-112); ASPARTATE AMNIOTRANSFERASE,AST 36 IU/L (5-25); BLOOD UREA NITROGEN,BUN 63 mg/dL (7-18); BUN/CREATININE RATIO 39.4 (9-20); CARBON DIOXIDE,CO2 33 mmol/L (21-32); CHLORIDE,CL 98 mmol/L (100-110); CREATININE 1.6 mg/dL (0.55-1.02); ESTIMATED GFR 34 mL/min (>60); GLUCOSE RANDOM 114 mg/dL (80-116); POTASSIUM,K 3.4 mmol/L (3.5-5.3); PROTEIN TOTAL,TP 7.3 g/dL (6.0-8.0); SODIUM,NA 140 mmol/L (135-145)
[2023-07-09] MEDS: Aspirin 325 MG Tab.EC PO STA (13:48)
[2023-07-09 14:05] LABS: PTT,PARTIAL THROMBOPLSTIN TIME 26.6 SECONDS (24.4-33.2)
[2023-07-09 14:07] LABS: INR 1.18 (1.00-1.24); PROTHROMBIN TIME 12.1 sec (9.0-11.1)
[2023-07-09] MEDS: Nitroglycerin 0.4 MG Tab.SL ONE (14:12)
[2023-07-09] MEDS: Heparin Sodium/0.45% NaCl 25,000 UNITS/500 ML BAG IV SCH (14:20)
== END 2023-07-09 15:03 | DRG 947 ==
LOC: FB.MS 12:13
PROVIDERS: ADMIT Internal Medicine; ATTEND Internal Medicine
DX: R53.1 Weakness (principal); I21.4 Non-ST elevation (NSTEMI) myocardial infarction; I50.33 Acute on chronic diastolic (congestive) heart failure; F33.9 Major depressive disorder, recurrent, unspecified; I13.0 Hypertensive heart and chronic kidney disease with heart failure and stage 1 through stage 4 chronic kidney disease, or unspecified chronic kidney disease; Z68.41 Body mass index [BMI] 40.0-44.9, adult; I42.0 Dilated cardiomyopathy; I48.11 Longstanding persistent atrial fibrillation; J44.9 Chronic obstructive pulmonary disease, unspecified; E78.5 Hyperlipidemia, unspecified; I27.20 Pulmonary hypertension, unspecified; E66.9 Obesity, unspecified; G47.33 Obstructive sleep apnea (adult) (pediatric); H54.7 Unspecified visual loss; M10.9 Gout, unspecified; G43.909 Migraine, unspecified, not intractable, without status migrainosus; Z96.649 Presence of unspecified artificial hip joint; M41.9 Scoliosis, unspecified; D50.9 Iron deficiency anemia, unspecified; D63.1 Anemia in chronic kidney disease; I25.118 Atherosclerotic heart disease of native coronary artery with other forms of angina pectoris; R79.89 Other specified abnormal findings of blood chemistry; N18.32 Chronic kidney disease, stage 3b; E11.22 Type 2 diabetes mellitus with diabetic chronic kidney disease; Z95.0 Presence of cardiac pacemaker; Z86.73 Personal history of transient ischemic attack (TIA), and cerebral infarction without residual deficits; Z88.0 Allergy status to penicillin; Z88.8 Allergy status to other drugs, medicaments and biological substances; Z79.82 Long term (current) use of aspirin; Z79.51 Long term (current) use of inhaled steroids; Z79.02 Long term (current) use of antithrombotics/antiplatelets; Z79.84 Long term (current) use of oral hypoglycemic drugs; Z79.899 Other long term (current) drug therapy; Z79.4 Long term (current) use of insulin; I25.2 Old myocardial infarction; Z87.01 Personal history of pneumonia (recurrent); Z87.440 Personal history of urinary (tract) infections; Z87.81 Personal history of (healed) traumatic fracture; Z98.49 Cataract extraction status, unspecified eye; Z98.890 Other specified postprocedural states; Z95.5 Presence of coronary angioplasty implant and graft; Z90.49 Acquired absence of other specified parts of digestive tract; Z90.710 Acquired absence of both cervix and uterus; Z95.818 Presence of other cardiac implants and grafts
CPT/HCPCS: 36410; 36415; 51702; 80048; 80053; 84484; 85025; 85610; 85730; 93005; 93010; 94762; 97110-GO; 97110-GP; 97161-GP; 97165-GO; 97530-GO; 97530-GP; 97535-GO; 99305; 99307; 99309; 99315; A9270-GY; J1644; J1650; J1815; J1815-GY; J1940; J3490

== ENCOUNTER 2023-08-04 10:35 | Emergency (ER) | payer MEDICARE, BC ==
[2023-08-04] MEDS ORDERED: Sodium Chloride 0.9% 10 ML Syringe FLUSH PRN (10:50)
[2023-08-04 11:05] LABS: BASOPHILS ABSOLUTE AUTO 0.1 x10-3/uL (0.0-0.1); BASOPHILS PERCENT AUTO 0.7 % (0.2-1.5); EOSINOPHILS ABSOLUTE AUTO 0.1 x10-3/uL (0.0-0.8); EOSINOPHILS PERCENT AUTO 1.1 % (0.6-8.1); HEMATOCRIT 36.4 % (34.2-48.2); HEMOGLOBIN 11.6 g/dL (11.4-15.5); LYMPHOCYTES ABSOLUTE AUTO 1.9 x10-3/uL (1.0-4.4); LYMPHOCYTES PERCENT AUTO 21.4 % (18.4-52.1); MEAN CORPUSCULAR HEMOGLOBIN 32.5 pg (23.9-33.9); MEAN CORPUSCULAR HGB CONC 31.9 g/dL (31.9-34.8); MEAN CORPUSCULAR VOLUME 101.9 fL (76.7-100.5); MEAN PLATELET VOLUME 8.7 fL (7.1-12.4); MONOCYTES ABSOLUTE AUTO 0.8 x10-3/uL (0.3-1.0); NEUTROPHILS PERCENT AUTO 67.8 % (30.8-76.2); PLATELET COUNT,PLT 304 x10(3)uL (151-488); RED BLOOD CELL COUNT 3.57 x10(6)uL (3.60-5.20); RED CELL DISTRIBUTION WIDTH 19.2 % (12.3-16.5); WHITE BLOOD CELL COUNT,WBC 8.9 x10-3/uL (3.0-10.3)
[2023-08-04 11:09] LABS: BLOOD UREA NITROGEN,BUN 52 mg/dL (7-18); BUN/CREATININE RATIO 30.6 (9-20); CALCIUM 9.3 mg/dL (8.6-10.2); CARBON DIOXIDE,CO2 35 mmol/L (21-32); CHLORIDE,CL 97 mmol/L (100-110); CREATININE 1.7 mg/dL (0.55-1.02); EST CRCL DRUG DOSING (CG) 22.96 mL/min; ESTIMATED GFR 31 mL/min (>60); GLUCOSE RANDOM 200 mg/dL (80-116); POTASSIUM,K 3.4 mmol/L (3.5-5.3); SODIUM,NA 140 mmol/L (135-145)
[2023-08-04 11:15] LABS: A/G RATIO 0.7; ALANINE AMINOTRANSFERASE,ALT 26 U/L (12-36); ALBUMIN 3.3 g/dL (3.2-4.6); ALKALINE PHOSPHATASE 175 IU/L (56-112); ASPARTATE AMNIOTRANSFERASE,AST 28 IU/L (5-25); BILIRUBIN TOTAL 1.2 mg/dL (0.1-1.3); PROTEIN TOTAL,TP 7.8 g/dL (6.0-8.0)
[2023-08-04 11:22] LABS: C-REACTIVE PROTEIN < 0.50 mg/dL (<0.50); PRO B-TYPE NATRIUR PEPT,BNPPRO 2408 pg/mL (<=125); TROPONIN I 336.4 pg/mL (4.0-60.3)
[2023-08-04] MEDS: Sodium Chloride 0.9% 1,000 ML IV SCH (11:27)
[2023-08-04] MEDS: Nitroglycerin 0.4 MG Tab.SL SL PRN (11:27)
[2023-08-04] MEDS: Aspirin 81 MG Tab.Chew PO ONE (11:27)
[2023-08-04 11:39] LABS: BILIRUBIN,URINE NEGATIVE (NEGATIVE); GLUCOSE,URINE >1000 mg/dL (NORMAL); KETONES,URINE NEGATIVE (NEGATIVE); LEUKOCYTE ESTERASE,URINE LARGE (NEGATIVE); NITRITE,URINE NEGATIVE (NEGATIVE); OCCULT BLOOD,URINE NEGATIVE (NEGATIVE); PH,URINE 6.5 (5.0-6.5); PROTEIN,URINE NEGATIVE (NEGATIVE); UROBILINOGEN,URINE NORMAL (NEGATIVE)
[2023-08-04 11:42] LABS: APPEARANCE,URINE SLIGHTLY CLOUDY (CLEAR); BACTERIA,URINE MODERATE (NS); COLOR,URINE YELLOW (YELLOW); RBC,URINE 0-5 (0-5); SQUAMOUS EPITHELIAL CELLS,UR RARE (NS,R,O); WBC,URINE 30-40 (0-5)
[2023-08-04] MEDS: Heparin Sodium 5,000 Units/ML Vial IVPUSH ONE (13:15)
[2023-08-04 13:17] LABS: INR 1.14 (1.00-1.24)
[2023-08-04] MEDS: Heparin Sodium/0.45% NaCl 500 ML IV SCH (13:17)
[2023-08-04 13:19] LABS: PROTHROMBIN TIME 11.8 sec (9.0-11.1); PTT,PARTIAL THROMBOPLSTIN TIME 23.2 SECONDS (24.4-33.2)
[2023-08-04] MEDS: cefTRIAXone 1 GM Vial IVPUSH ONE (15:24)
[2023-08-04] MEDS: Nitroglycerin/D5W 25 MG/250 ML BOTTLE IV SCH (15:45)
== END 2023-08-04 17:01 ==
LOC: FB.ED 10:35
DX: I21.4 Non-ST elevation (NSTEMI) myocardial infarction (principal); N39.0 Urinary tract infection, site not specified; I13.0 Hypertensive heart and chronic kidney disease with heart failure and stage 1 through stage 4 chronic kidney disease, or unspecified chronic kidney disease; N18.9 Chronic kidney disease, unspecified; I50.9 Heart failure, unspecified; E11.22 Type 2 diabetes mellitus with diabetic chronic kidney disease; J44.9 Chronic obstructive pulmonary disease, unspecified; Z68.37 Body mass index [BMI] 37.0-37.9, adult; E66.9 Obesity, unspecified; Z90.49 Acquired absence of other specified parts of digestive tract; Z90.710 Acquired absence of both cervix and uterus; Z79.84 Long term (current) use of oral hypoglycemic drugs; Z79.899 Other long term (current) drug therapy; Z79.4 Long term (current) use of insulin; Z88.0 Allergy status to penicillin; Z88.8 Allergy status to other drugs, medicaments and biological substances
CPT/HCPCS: 36415; 71045; 80053; 81001; 83880; 84484; 85025; 85610; 85730; 86140; 87086; 93005; 93010; 96365; 96366; 96368; 96375; 99285; A9270; J0696; J1644; J2305; J7030

== ENCOUNTER 2023-08-17 12:55 | Inpatient (IN) | payer OTHER ==
[2023-08-17] MEDS ORDERED: LORATADINE 10 MG PO PRN (13:02)
[2023-08-17] MEDS ORDERED: NYSTATIN TOP PRN (13:02)
[2023-08-17] MEDS ORDERED: Non-Formulary Medication 1 Each (Estrogens, Conjugated [Premarin Vaginal Crm] 30 GM Tube) VAG PRN (13:02)
[2023-08-17] MEDS ORDERED: Bisacodyl 10 MG Supp *PTOM RECTAL PRN (13:11)
[2023-08-17] MEDS ORDERED: Albuterol 6.7 GM Inhaler INH PRN (13:19)
[2023-08-17] MEDS ORDERED: Pantoprazole 40 MG Tab.CR PO PRN (13:26)
[2023-08-17] MEDS ORDERED: Montelukast 10 MG Tab PO PRN (13:58)
[2023-08-17] MEDS ORDERED: Nitroglycerin 0.4 MG Tab.SL SL PRN (13:59)
[2023-08-17] MEDS: Morphine 10 MG/0.5 ML Oral Syringe PO PRN (15:26)
[2023-08-17] MEDS: Hyoscyamine 0.125 MG Tab.SL *PTOM PO PRN (16:36)
[2023-08-17] MEDS: RANOLAZINE 1000 MG PO SCH (21:25)
[2023-08-17] MEDS: traZODone 50 MG Tab PO SCH (21:25)
[2023-08-17] MEDS: Sennosides/Docusate Sodium 50-8.6 MG Tab *PTOM PO SCH (21:26)
[2023-08-17] MEDS: Metoprolol Tartrate 50 MG Tab PO SCH (23:09)
[2023-08-18] MEDS: Torsemide 20 MG Tab PO SCH (08:05)
[2023-08-18] MEDS: DULoxetine 60 MG Cap PO SCH (08:05)
[2023-08-18] MEDS: Isosorbide Mononitrate 30 MG Tab.ER PO SCH (08:07)
[2023-08-18] MEDS ORDERED: Non-Formulary Medication 1 Each (Fluticasone/Umeclidin/Vilanter [Trelegy Ellipta 100-62.5- INH SCH (09:00)
[2023-08-18] MEDS ORDERED: Non-Formulary Medication 1 Each (Pantoprazole [ProTONIX***] 40 MG Tab.Cr) PO SCH (09:00)
[2023-08-18] MEDS: Morphine 10 MG/0.5 ML Oral Syringe PO SCH (12:06)
[2023-08-19] MEDS: LORazepam 0.5 MG Tab PO PRN (03:28)
[2023-08-19] MEDS: DULoxetine 30 MG Cap PO SCH (08:01)
[2023-08-20] MEDS: Haloperidol Lactate 2 MG/ML Oral Soln 15 ML Bottle PO PRN (19:07)
[2023-08-21] MEDS: Ondansetron 4 MG Tab.DIS *PTOM PO PRN (01:53)
[2023-08-22] MEDS: Bisacodyl 10 MG Supp RECTAL SCH (15:22)
[2023-08-22] MEDS: Hyoscyamine 0.125 MG Tab.SL SCH (16:28)
[2023-08-22] MEDS: Haloperidol Lactate 2 MG/ML Oral Soln 15 ML Bottle PO SCH (16:29)
[2023-08-24] MEDS: Haloperidol Lactate 2 MG/ML Oral Soln 15 ML Bottle PO PRN (12:55)
[2023-08-24] MEDS: Hyoscyamine 0.125 MG Tab.SL *PTOM PRN (19:11)
[2023-08-26] MEDS ORDERED: LORazepam 0.5 MG Tab PO SCH (15:00)
[2023-08-26] MEDS: LORazepam 0.5 MG Tab PO SCH (16:03)
[2023-08-27 06:25] VITALS: BP 107/53; PULSE 59
[2023-08-29] MEDS ORDERED: Carboxymethylcellulose Sodium 1% Ophth Gel 0.4 ML UD Box of 30 EYEBOTH PRN (00:34)
[2023-08-29] MEDS ORDERED: Carboxymethylcellulose Sodium 0.5% Ophth Soln 15 ML Bottle EYEBOTH PRN (04:00)
[2023-08-30] MEDS: Morphine 10 MG/0.5 ML Oral Syringe PO SCH (15:11)
[2023-09-02] MEDS: Carboxymethylcellulose Sodium 0.5% Ophth Soln 15 ML Bottle EYEBOTH PRN (09:59)
[2023-09-02] MEDS: Carboxymethylcellulose Sodium 0.5% Ophth Soln 15 ML Bottle EYEBOTH SCH (16:09)
[2023-09-05] MEDS: Morphine 10 MG/0.5 ML Oral Syringe PO SCH (11:20)
[2023-09-06] MEDS: Morphine 10 MG/0.5 ML Oral Syringe PO PRN (18:31)
[2023-09-07] MEDS ORDERED: LORazepam 0.5 MG Tab PO PRN (09:50)
[2023-09-08] MEDS ORDERED: Bisacodyl 10 MG Supp RECTAL SCH (09:00)
== END 2023-09-07 15:34 | disposition still patient (30) | DRG 951 ==
LOC: FB.MS 12:55
PROVIDERS: ADMIT Family Medicine; ATTEND Internal Medicine
DX: Z51.5 Encounter for palliative care (principal); Z75.5 Holiday relief care; Z66 Do not resuscitate
CPT/HCPCS: 51702; A9270-GY; Q0162

== ENCOUNTER 2023-09-07 15:26 | Inpatient (IN) | payer OTHER ==
[2023-09-07] MEDS ORDERED: Bisacodyl 10 MG Supp RECTAL PRN (15:40)
[2023-09-07] MEDS ORDERED: Haloperidol Lactate 2 MG/ML Oral Soln 15 ML Bottle PO PRN ×2 (15:42→15:55)
[2023-09-07] MEDS ORDERED: LORazepam 0.5 MG Tab PO PRN (15:44)
[2023-09-07] MEDS ORDERED: Nitroglycerin 0.4 MG Tab.SL SL PRN (15:46)
[2023-09-07] MEDS ORDERED: Ondansetron 4 MG Tab.DIS PRN (15:46)
[2023-09-07] MEDS: LORazepam 0.5 MG Tab PO SCH (18:49)
[2023-09-07] MEDS: Morphine 10 MG/0.5 ML Oral Syringe PO PRN (18:49)
[2023-09-07] MEDS: Morphine 10 MG/0.5 ML Oral Syringe PO SCH (20:56)
[2023-09-07] MEDS: Haloperidol Lactate 2 MG/ML Oral Soln 15 ML Bottle PO SCH (20:57)
[2023-09-07] MEDS: traZODone 50 MG Tab PO SCH (20:57)
[2023-09-08] MEDS: Carboxymethylcellulose Sodium 0.5% Ophth Soln 15 ML Bottle EYEBOTH PRN (00:07)
[2023-09-08] MEDS: Bisacodyl 10 MG Supp RECTAL SCH (08:38)
[2023-09-09] MEDS: Morphine 10 MG/0.5 ML Oral Syringe SL SCH (15:16)
[2023-09-09] MEDS: Hyoscyamine 0.125 MG Tab.SL SCH (15:16)
[2023-09-09] MEDS: Hyoscyamine 0.125 MG Tab.SL ONE (21:40)
[2023-09-10] MEDS: Morphine 10 MG/0.5 ML Oral Syringe ONE (01:02)
[2023-09-10] MEDS: Hyoscyamine 0.125 MG Tab.SL PRN (14:02)
== END 2023-09-10 14:42 | disposition expired | DRG 951 ==
LOC: FB.MS 15:35
PROVIDERS: ADMIT Internal Medicine; ATTEND Internal Medicine
DX: Z51.5 Encounter for palliative care (principal); Z66 Do not resuscitate; Z75.5 Holiday relief care
CPT/HCPCS: A9270-GY; Q5005